=== PATIENT | female | born 1975 | race Caucasian/White ===

== ENCOUNTER 2017-09-17 20:43 | Emergency (ER) | payer MEDICAID ==
[2017-09-17] MEDS ORDERED: TYLENOL PO ONE (21:00)
[2017-09-17] MEDS ORDERED: TYLENOL ONE (21:03)
[2017-09-18] MEDS ORDERED: NORCO 10/325 PO ONE (03:23)
--- NOTE | 2017-09-18 05:18 | Emergency Department Report ---
ED General Adult HPI - General Chief complaint: Back Pain/Injury Stated complaint: LOWER BACK PAIN Time Seen by Provider: 09/18/17 03:20 Source: patient Mode of arrival: Ambulatory Limitations: No Limitations - History of Present Illness Initial comments: Patient is a 42-year-old female past medical history of obesity and osteoarthritis who presents with lower back pain. Patient states that she woke up and she had some lower back pain. She is lower back pain radiates to her stomach and goes down her right leg. She says whenever she raises her right leg she has some back pain. The back pain has been going on for 1 day. She says it's a 10 out of 10. He denies any trauma to the area or any lifting anything. She denies any nausea or vomiting or any shortness of breath. Severity scale (0 -10): 8 - Related Data Previous Rx's Medication Instructions Recorded Last Taken Type Famotidine [Pepcid] 20 mg PO BID #60 tablet 05/11/16 Unknown Rx Ibuprofen [Motrin 400 MG tab] 400 mg PO Q8H PRN #30 tablet 05/11/16 Unknown Rx Azithromycin [Zithromax TAB] 250 mg PO QDAY #5 tablet 06/09/16 Unknown Rx Diclofenac Sodium [Voltaren] 100 gm TP Q6H PRN #1 gel..gram. 09/18/17 Unknown Rx Lidocaine [Lidoderm] 1 each TP Q24HR PRN #12 adh..patch 09/18/17 Unknown Rx Allergies Allergy/AdvReac Type Severity Reaction Status Date / Time No Known Allergies Allergy Verified 01/11/16 10:08 ED Review of Systems ROS: Stated complaint: LOWER BACK PAIN Other details as noted in HPI Constitutional: denies: chills, fever Eyes: denies: eye pain, eye discharge, vision change ENT: denies: ear pain, throat pain Respiratory: denies: cough, shortness of breath, wheezing Cardiovascular: denies: chest pain, palpitations Endocrine: no symptoms reported Gastrointestinal: denies: abdominal pain, nausea, diarrhea Genitourinary: denies: urgency, dysuria, discharge Musculoskeletal: back pain. denies: joint swelling, arthralgia Skin: denies: rash, lesions Neurological: denies: headache, weakness, paresthesias Psychiatric: denies: anxiety, depression Hematological/Lymphatic: denies: easy bleeding, easy bruising ED Past Medical Hx - Past Medical History Hx Hypertension: Yes (WITH PREG ONLY- Resolved. ) Hx Renal Disease: No Hx Headaches / Migraines: Yes (MIGRAINES) Hx Seizures: No Hx Psychiatric Treatment: Yes (panic attacks) Additional medical history: [place] - Surgical History Additional Surgical History: c sect x 6, tonsillectomy. left knee surgery - Social History Smoking Status: Current Every Day Smoker Substance Use Type: Alcohol - Medications Home Medications: Home Medications Medication Instructions Recorded Confirmed Last Taken Type Famotidine [Pepcid] 20 mg PO BID #60 tablet 05/11/16 Unknown Rx Ibuprofen [Motrin 400 MG tab] 400 mg PO Q8H PRN #30 tablet 05/11/16 Unknown Rx Azithromycin [Zithromax TAB] 250 mg PO QDAY #5 tablet 06/09/16 Unknown Rx Diclofenac Sodium [Voltaren] 100 gm TP Q6H PRN #1 gel..gram. 09/18/17 Unknown Rx Lidocaine [Lidoderm] 1 each TP Q24HR PRN #12 adh..patch 09/18/17 Unknown Rx ED Physical Exam - General Limitations: No Limitations General appearance: alert, in no apparent distress - Head Head exam: Present: atraumatic, normocephalic - Eye Eye exam: Present: normal appearance - ENT ENT exam: Present: mucous membranes moist - Neck Neck exam: Present: normal inspection - Respiratory Respiratory exam: Present: normal lung sounds bilaterally. Absent: respiratory distress - Cardiovascular Cardiovascular Exam: Present: regular rate, normal rhythm. Absent: systolic murmur, diastolic murmur, rubs, gallop - GI/Abdominal GI/Abdominal exam: Present: soft, normal bowel sounds - Extremities Exam Extremities exam: Present: normal inspection - Back Exam Back exam: Present: muscle spasm, paraspinal tenderness - Neurological Exam Neurological exam: Present: alert, oriented X3 - Psychiatric Psychiatric exam: Present: normal affect, normal mood - Skin Skin exam: Present: warm, dry, intact, normal color. Absent: rash ED Course Vital Signs 09/17/17 09/18/17 09/18/17 20:56 02:16 03:39 Temperature 97.8 F 97.3 F L Pulse Rate 77 67 Respiratory 16 16 16 Rate Blood Pressure 119/70 Blood Pressure 120/54 [Left] O2 Sat by Pulse 96 99 Oximetry ED Medical Decision Making - Medical Decision Making Chief medical diagnosis: Lumbosacral strain Differential medical diagnosis: Herniated disc, osteoarthritis of lumbar spine Patient does not require any imaging PATIENT oral pain medication and I will send patient home with Lidoderm patches and NSAID cream. Discussed outpatient patient agrees with plan additional verbal discharge instructions were given. Critical care attestation.: If time is entered above; I have spent that time in minutes in the direct care of this critically ill patient, excluding procedure time. ED Disposition Clinical Impression: Lower back pain Qualifiers: Chronicity: acute Back pain laterality: midline Sciatica presence: with sciatica Sciatica laterality: sciatica of right side Qualified Code(s): M54.41 - Lumbago with sciatica, right side Disposition: TO HOME OR SELFCARE Is pt being admited?: No Does the pt Need Aspirin: No Condition: Stable Instructions: Core Strengthening Exercises (GEN), Low Back Strain (ED) Prescriptions: Diclofenac Sodium [Voltaren] 100 gm TP Q6H PRN #1 gel..gram. PRN Reason: Pain Lidocaine [Lidoderm] 1 each TP Q24HR PRN #12 adh..patch PRN Reason: Pain Referrals: TWAN KING MD [Primary Care Provider] - 3-5 Days
[2017-09-18 06:02] VITALS: BP 122/47
== END 2017-09-18 05:50 | disposition home or self-care (01) ==
LOC: ED 20:43
DX: M54.41 Lumbago with sciatica, right side (principal); I10 Essential (primary) hypertension; G43.909 Migraine, unspecified, not intractable, without status migrainosus; F17.200 Nicotine dependence, unspecified, uncomplicated; F41.0 Panic disorder [episodic paroxysmal anxiety]; Z90.89 Acquired absence of other organs
CPT/HCPCS: 99282